=== PATIENT | male | born 1975 | race Caucasian/White ===

== ENCOUNTER 2016-05-28 13:37 | Inpatient (IN) | payer MEDICAID ==
[2016-05-28] VITALS (13 sets, daily range): BP systolic 95–128; BP diastolic 66–94; PULSE 89–107; RESP 11–26; TEMP 97.9; Ht 157.5 cm; Wt 63.4 kg
[~2016-05-28] VITALS: Ht 157.5 cm; Wt 63.4 kg
[~2016-05-28 13:37] MED LIST: ETOMIDATE 20 MG INJ ONE; MIDAZOLAM 1 MG/ML 2 ML INJ ONE; SUCCINYLCHOLINE CHLORIDE 100 MG/5 ML SYG IV ONE
[2016-05-28] MEDS ORDERED: ASPIRIN 81 MG TAB PO STA (13:45)
[2016-05-28] MEDS ORDERED: SODIUM CHLORIDE 0.9% 1L BAG IV* STA (13:50)
[2016-05-28] MEDS ORDERED: AZITHROMYCIN 500MG/NS (PMX) 250 ML IV STA (13:50)
[2016-05-28] MEDS ORDERED: CEFTRIAXONE 1 GM/50 ML (PMX) 50 ML IVPB STA (13:50)
[2016-05-28] MEDS ORDERED: ALBU8.5H3 INH (13:59)
[2016-05-28] MEDS ORDERED: ALBUTEROL 0.5% (NEB) 2.5 MG/0.5 ML AMP ONE (14:02)
[2016-05-28] MEDS ORDERED: DEXAMETHASONE 10 MG/ML 1 ML INJ IV STA (14:02)
[2016-05-28] MEDS ORDERED: ALBUTEROL 0.5% (NEB) 2.5 MG/0.5 ML AMP INH STA (14:02)
--- NOTE | 2016-05-28 14:09 | RADRPT ---
PROCEDURE: XR Chest. CLINICAL INDICATION: Chest pain TECHNIQUE: Chest AP portable. COMPARISON: No comparison available. FINDINGS: The mediastinal structures are unremarkable. The heart is normal in size and configuration. The pu lmonary vascularity is normal. The lung noyola are unremarkable. No consolidation is identified. The pleural spaces are unremarkable. The axial skeleton is unremarkable. IMPRESSION: No active intrathoracic disease. RPTAT: HGDB .Pravin Amaya MD, MD Date Time Electronically viewed and signed by .Pravin Amaya MD, MD on 05/28/2016 14:09 .B/
[2016-05-28 14:10] LABS: BASOPHIL # 0.1 10^3/ul (0.0-0.1); BASOPHILS % 0.5 % (0.0-2.0); EOSINOPHILS # 0.9 10^3/ul (0.0-0.5); HEMATOCRIT 51.3 % (42.0-52.0); HEMOGLOBIN 17.7 g/dl (14.0-18.0); LYMPHOCYTES # 1.1 10^3/ul (0.8-2.9); LYMPHOCYTES % 6.9 % (15.0-51.0); MEAN CORPUSCULAR HEMOGLOBIN 31.2 pg (29.0-33.0); MEAN CORPUSCULAR HGB CONC 34.5 g/dl (32.0-37.0); MEAN CORPUSCULAR VOLUME 90.5 fl (82.0-101.0); MEAN PLATELET VOLUME 9.3 fl (7.4-10.4); MONOCYTE # 0.8 10^3/ul (0.3-0.9); NEUTROPHIL # 12.5 10^3/ul (1.6-7.5); NEUTROPHILS % 81.6 % (39.0-77.0); PLATELET COUNT 205 10^3/UL (140-440); RED BLOOD COUNT 5.67 10^6/ul (4.70-6.10); RED CELL DISTRIBUTION WIDTH 13.8 % (11.5-14.5); UNCORRECTED WBC 15.3 10^3/ul (4.8-10.8); WHITE BLOOD COUNT 15.3 10^3/ul (4.8-10.8)
[2016-05-28 14:11] LABS: CONDITION 1
[2016-05-28 14:12] LABS: INR 0.94; PROTIME 12.6 Sec (12.2-14.2)
[2016-05-28 14:13] LABS: CHLORIDE 103 mmol/L (97-110); PARTIAL THROMBOPLASTIN TIME 28.4 Sec (25.0-35.0); SODIUM 145 mmol/L (135-144)
[2016-05-28 14:16] LABS: ANION GAP 20 (8-16); BLOOD UREA NITROGEN 12 mg/dl (7-20); CARBON DIOXIDE 26 mmol/L (21-31); CREATININE 0.84 mg/dl (0.61-1.24); GLUCOSE 126 mg/dl (70-220)
[2016-05-28 14:17] LABS: CALCIUM 9.9 mg/dl (8.4-10.2)
[2016-05-28 14:24] LABS: D-DIMER < 460.00 ng/ml (<460)
[2016-05-28 14:30] LABS: TROPONIN-I < 0.012 ng/ml (0.00-0.12)
[2016-05-28 14:31] LABS: AADO2 Arterial 176.5 mmHg (7.0-24.0); Allen Test ACCEPTAB; Arterial Base Excess -2.2 mmol/L (-3.0-3); Arterial COHb 0.3 % (0.0-3.0); Arterial Fraction of Oxyhgb 98.1 % (93.0-99.0); Arterial HCO3 24.5 mmol/L (22.0-26.0); Arterial MetHb 0.6 % (0.0-1.5); Arterial Total Hemglobin 18.4 g/dl (12.0-18.0); Blood Gas IEPAP 18/5; Blood Gas PS 13; MODE MASK - BIPAP
[2016-05-28] MEDS ORDERED: ALBUTEROL 0.5% (NEB) 2.5 MG/0.5 ML AMP NEB STA (15:08)
[2016-05-28] MEDS ORDERED: PROPOFOL 100 ML ONE (15:12)
--- NOTE | 2016-05-28 15:20 | ERA ---
ER Documentation Chief Complaint Date/Time DATE: 05/28/16 TIME: 15:16 Chief Complaint ARRIVED WITH SEVERE SOB AND TACHYPNEA HPI 40-year-old male with no known past medical history presenting with 1 day of shortness of breath. He denies any associated chest pain. It started last night and has progressively worsened. He has not been feeling well for several days with sore throat, however had no shortness of breath until last night. He has no known history of asthma or any other lung problems. He arrived to the [facility] in December from [facility]. No family history of significant medical problems. He has no personal history of clotting disorder. No recent prolonged travel or immobilization. No recent surgeries. ROS Review of systems limited secondary to severe respiratory distress. Medications Home Meds Reported Medications Albuterol Sulfate* (Proair HFA*) 8.5 Gm Hfa.aer.ad, 2 PUFF INH Q6H Y for WHEEZING AND SOB, #1 INHALER 05/28/16 Allergies Allergies: Coded Allergies: No Known Allergy (Unverified , 05/28/16) PMhx/Soc Medical and Surgical Hx: pt denies Medical Hx, pt denies Surgical Hx Hx Alcohol Use: No Hx Substance Use: No Hx Tobacco Use: Yes Smoking Status: Current every day smoker FmHx Family History: No diabetes Physical Exam Vitals Vital Signs Date Time Temp Pulse Resp B/P Pulse Ox O2 Delivery O2 Flow Rate FiO2 05/28/16 18:27 98.0 92 20 143/96 100 Mechanical Ventilator 05/28/16 18:21 100 30 05/28/16 17:21 111 26 100 100 05/28/16 17:00 97.9 106 18 145/79 100 Mechanical Ventilator 05/28/16 16:00 98.4 100 26 162/78 100 Mechanical Ventilator 05/28/16 14:44 Non Rebreather 8 05/28/16 14:44 100 05/28/16 13:40 99.2 122 40 166/102 98 Physical Exam Const: In severe respiratory distress, appears toxic Head: Atraumatic Eyes: Normal Conjunctiva ENT: Normal External Ears, Nose and Mouth. Posterior oropharynx normal without swelling or evidence of infection. No stridor or drooling. Neck: Full range of motion. No meningismus. No masses. No JVD Resp: Tachypneic, Diffuse expiratory wheezing, diminished breath sounds bilaterally, no rales or rhonchi Cardio: Tachycardic with regular rhythm, no murmurs Abd: Soft, non tender, non distended. Normal bowel sounds Skin: No petechiae or rashes Back: No midline or flank tenderness Ext: No cyanosis, or edema Neur: Awake and alert and oriented, moving all extremities Result Diagram: 05/28/16 1340 05/28/16 1340 Results 24 hrs Laboratory Tests Test 05/28/16 13:40 05/28/16 13:50 05/28/16 17:39 Activated Partial Thromboplast Time 28.4Sec Anion Gap 20 Basophils # 0.110^3/ul Basophils % 0.5% Blood Urea Nitrogen 12mg/dl Calcium Level 9.9mg/dl Carbon Dioxide Level 26mmol/L Chloride Level 103mmol/L Creatinine 0.84mg/dl D-Dimer < 460.00ng/ml D-Dimer Comment Eosinophils # 0.910^3/ul Eosinophils % 6.0% Glucose Level 126mg/dl Hematocrit 51.3% Hemoglobin 17.7g/dl INR International Normalized Ratio 0.94 Lactic Acid Level 2.4mmol/L Lymphocytes # 1.110^3/ul Lymphocytes % 6.9% Mean Corpuscular Hemoglobin 31.2pg Mean Corpuscular Hemoglobin Concent 34.5g/dl Mean Corpuscular Volume 90.5fl Mean Platelet Volume 9.3fl Monocytes # 0.810^3/ul Monocytes % 5.0% Neutrophils # 12.510^3/ul Neutrophils % 81.6% Nucleated Red Blood Cells # 0.010^3/ul Nucleated Red Blood Cells % 0.0/100WBC Platelet Count 85416^3/UL Potassium Level 4.0mmol/L Prothrombin Time 12.6Sec Prothrombin Time Ratio 1.0 Red Blood Count 5.6710^6/ul Red Cell Distribution Width 13.8% Sodium Level 145mmol/L Troponin I < 0.012ng/ml White Blood Count 15.310^3/ul Arterial Blood HCO3 24.5mmol/L 23.1mmol/L Arterial Blood Base Excess -2.2mmol/L -3.4mmol/L Arterial Blood Oxygen Saturation 99.0mmHG 99.7mmHG Joni Test ACCEPTAB ACCEPTAB Arterial Blood Gas Puncture Site Right Radial Right Radial Arterial Blood Carboxyhemoglobin 0.3% 0% Arterial Blood Date Drawn 05/28/2016 2:22:35 PM 05/28/2016 5:34:29 PM Arterial Blood Methemoglobin 0.6% 0.6% Arterial Blood pCO2 (Temp correct) 48.4mmhg 46.8mmhg Arterial Blood pH (Temp corrected) 7.322 7.312 Arterial Blood pO2 (Temp corrected) 198.1mmHG 532.6mmHG Blood Gas A-a O2 Differential 176.5mmHg 133.6mmHg Blood Gas Actual Respiration Rate 40 24 Blood Gas IPAP/EPAP Ratio 18/5 Blood Gas Modality MASK - BIPAP VENT - AC Blood Gas Notified Time 05/28/2016 2:31:01 PM 05/28/2016 5:44:07 PM Blood Gas Notified Whom M.D. M.D. Blood Gas Pressure Support 13 Blood Gas Respiration Rate 14.0 24.0 Blood Gas Specimen Source Blood arterial Blood arterial Blood Gas Temperature 37.0C 37.0C FiO2 60.0% 100.0% Oxyhemoglobin Percent 98.1% 99.1% Total Hemoglobin 18.4g/dl 16.3g/dl Blood Gas Low PEEP Setting 5.0cmH2O Blood Gas Tidal Volume 500.0mL Current Medications Medications (Trade) Dose Ordered Sig/Rufino Route PRN Reason Start Time Stop Time Status Last Admin Dose Admin Aspirin (Aspirin) 162 mg ONCE STAT PO 05/28/16 13:45 05/28/16 18:08 DC Sodium Chloride 2100 ml 2,100 ml BOLUS OVER 2 HOURS STAT IV* 05/28/16 13:50 05/28/16 13:52 DC 05/28/16 14:34 Ceftriaxone Sodium 50 ml @ 100 mls/hr ONCE STAT IVPB 05/28/16 13:50 05/28/16 14:19 DC 05/28/16 14:34 Azithromycin (Zithromax 500mg/ NS (Pmx)) 250 ml @ 250 mls/hr ONCE STAT IV 05/28/16 13:50 05/28/16 14:49 DC Albuterol (Proventil 0.5% (Neb)) 2.5 mg STK-MED ONCE .ROUTE 05/28/16 14:02 05/28/16 14:03 DC Albuterol (Proventil 0.5% (Neb)) 10 mg ONCE STAT INH 05/28/16 14:02 2/8/17 14:04 DC 05/28/16 15:40 Dexamethasone (Decadron) 10 mg ONCE STAT IV 05/28/16 14:02 05/28/16 14:04 DC 05/28/16 14:33 Albuterol 5 mg 5 mg ONCE STAT NEB 05/28/16 15:08 05/28/16 15:09 DC 05/28/16 15:40 Propofol 100 ml @ 0 mls/hr TITRATE ONCE IV 05/28/16 15:30 05/28/16 16:04 DC Propofol (Diprivan) 100 ml @ ud STK-MED ONCE .ROUTE 05/28/16 15:12 05/28/16 15:13 DC Midazolam HCl 2 mg 2 mg ONCE ONCE IV 05/28/16 16:00 05/28/16 16:01 DC 05/28/16 15:37 Midazolam HCl 50 ml @ 1 mls/hr TITRATE IV 05/28/16 16:00 05/28/16 16:37 DC Fentanyl 100 ml @ 2.5 mls/hr TITRATE IV 05/28/16 16:00 05/28/16 16:37 DC Dexmedetomidine HCl 200 mcg/ Sodium Chloride 50 ml @ 0 mls/hr TITRATE IV 05/28/16 17:00 05/28/16 18:09 DC Sodium Chloride (NS) 1,000 ml @ 50 mls/hr Q20H IV 05/28/16 16:41 Flumazenil (Romazicon) 0.2 mg Q1M PRN IV BENZODIAZEPINE OVERDOSE 05/28/16 17:00 Ondansetron HCl (Zofran Inj) 4 mg Q6H PRN IV NAUSEA AND/OR VOMITING 05/28/16 17:00 Albuterol (Ventolin Hfa) 4 puff Q4H RESP THERAPY INH 05/28/16 17:00 Ipratropium Norden (Atrovent Hfa) 4 puff Q4H RESP THERAPY INH 05/28/16 17:00 Methylprednisolone Sodium Succinate 60 mg 60 mg Q6 IV 05/28/16 18:00 05/28/16 17:56 Magnesium Sulfate (Magnesium Sulfate 2 Gm/50 ml) 50 ml @ 25 mls/hr ONCE ONCE IV 05/28/16 17:00 05/28/16 18:59 05/28/16 17:46 Nitroglycerin (Nitroglycerin (Sl Tab) 0.4 Mg) 1 tab Q5M PRN SL CHEST PAIN 05/28/16 17:00 Acetaminophen (Tylenol Supp) 650 mg Q4H PRN LA PAIN LEVEL 1-3 OR FEVER 05/28/16 17:00 Morphine Sulfate (morphine) 2 mg Q4H PRN IV PAIN LEVEL 7-10 05/28/16 17:00 Lorazepam (Ativan) 1 mg Q2H PRN IV ANXIETY 05/28/16 17:00 Famotidine (Pepcid Iv) 20 mg Q12 IV 05/28/16 21:00 Enoxaparin Sodium 40 mg 40 mg DAILY SC 05/29/16 09:00 Cefepime HCl 50 ml @ 100 mls/hr Q12 IV 05/29/16 09:00 Dexmedetomidine HCl/Sodium Chloride (Precedex/NS) 50 ml @ 3.35 mls/hr TITRATE IV 05/28/16 17:00 Procedures/MDM EKG: Rate/Rhythm: Sinus tachycardia at 121 bpm QRS, ST, T-waves: Left axis deviation, no changes consistent w/ acute ischemia Impression: Sinus tachycardia, no evidence of ischemia or arrhythmia Patient presented with severe respiratory distress and evidence of bronchospasm on exam. There is no hypoxia, however the patient was tachypneic and tachycardic. Chest x-ray did not show evidence of any pulmonary mass or pneumonia. His d-dimer was within normal limits, making pulmonary embolism low on the differential. There is no evidence of acute CHF on my exam. I do not suspect anaphylaxis. The patient was immediately started on BiPAP and albuterol med nebs without any significant improvement. He was still working very hard to breathe and appeared to be getting very tired. I discussed intubation with the patient and he prefers to be intubated at this time. The patient was intubated for severe respiratory distress not improving with noninvasive positive pressure ventilation. Labs were notable for leukocytosis and lactic acidosis. Although the chest x-ray did not show any pneumonia, there is still a possibility of bacterial bronchitis. He was started on broad -spectrum antibiotics and 30 cc/kg of IV fluids. A stat echo was done and upon my interpretation, there is normal wall motion, ejection fraction, and no evidence of pericardial effusion. Endotracheal Intubation by me: Pre assessment performed. See preceding note for details. Pre-oxygenation performed with 100% oxygen RSI: Performed w/o complication or hypoxic events. Medications as ordered. Blade: Mac 4 ET Tube: 7.5 cm Depth: 23 cm at the lip Intubation confirmed by colorimetric CO2, equal breath sounds, quiet over the stomach. Chest X-ray 1V Interpreted by me: [XOXOXO] cm above the le ET tube. Normal soft tissue, No pneumothorax. Patient's infectious symptoms have not stabilized and the patient is at risk of rapid decompensation. The patient will be admitted for careful hydration, antibiotic therapy, and infectious source control. Severe Sepsis Assessment: Infectious Source: Suspect pulmonary infection End organ damage indicated by: Lactate > 2.0 mmol/L Acute Resp Failure Severe Sepsis Managment: Blood Cultures X 2 before broad spectrum antibiotics initiated within 3 hours of recognition. 30 ml/kg NS bolus Completed Initial Lactate: 2.4 Repeat Lactate pending Septic Shock Assessment (1 hour post 30 ml/kg fluid bolus): Hypotension (SBP < 90 or 40 mmHg drop, MAP < 65): [No] Lactic acid > 4.0 [No] Critical Care Time: 40 minutes Treatments/Evaluations: Close monitoring and treatment of unstable vital signs, cardiorespiratory, and neurologic status, while maintaining tight balance of fluid, respiratory, and cardiac interventions. This time includes discussing the case with the patient and the patients family. This time does not include all procedures stated elsewhere in this record. This time also includes reviewing old records, labs and radiological studies. This time includes examining and re-examining the patient. Additionally, this time also includes arranging care with admitting and consulting physicians. Accepting Care Team: Current data and ongoing care discussed. Time: Time of admission Primary Provider: Ronnie Consulting: Errol Outstanding Data: cultures Departure Diagnosis: Primary Impression: Acute respiratory failure with hypercapnia Additional Impressions: Bronchospasm, acute Severe sepsis Condition: Critical WILLIAMS ANDINO MD May 28, 2016 15:20
[2016-05-28] MEDS ORDERED: PROPOFOL 100 ML IV ONE (15:30)
[2016-05-28] MEDS ORDERED: FENTAnyl (DRIP) 1000 mcg/100mL 100 ML IV SCH (16:00)
[2016-05-28] MEDS ORDERED: MIDAZOLAM (DRIP) 50 mg/50 mL 50 ML IV SCH (16:00)
[2016-05-28] MEDS ORDERED: MIDAZOLAM 1 MG/ML 2 ML INJ IV ONE (16:00)
--- NOTE | 2016-05-28 16:53 | HP ---
Date/Time of Note Date/Time of Note DATE: 05/28/16 TIME: 16:47 Assessment/Plan VTE Prophylaxis VTE Prophylaxis Intervention: LMWH Lines/Catheters IV [facility]ter [facility]from [facility]): Saline Lock Assessment/Plan Assessment/Plan 40 yo male with a past medical history of smoking, questionable asthma, who presents with acute shortness of breath. 1. Acute hypoxemic respiratory failure requiring intubation - will admit the patient to the ICU, consult pulm, continue with duonebs scheduled and prn, IV steroids, IV antibiotics - ddx - asthma vs copd vs other 2. Throat infection - possible abscess - will check CT neck with IV contrast 3. Sepsis 2/2 possible atypical pneumonia - broad spectrum antibiotics 4. 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 GI ppx - pepcid IV 6. DVT ppx - lovenox as per clinical course. this critical care note took greater than 1 hour to complete HPI/ROS Admit Date/Time Admit Date/Time 05/28/2016, 4:47 pm Hx of Present Illness 40 yo male with a past medical history of smoking, questionable asthma, who presents with acute shortness of breath. Patient had recently came from [facility]. All of this information was gathered from the chart and the ED physician, as the patient is currently intubated and sedated. ED course: emergent intubation 2/2 to patient have acute respiratory distress, IV antibiotics, decadron ROS Subjective hx not possible: pt critical status PMH/Family/Social Past Medical History asthma vs COPD Past Surgical History unknown Family History Significant Family History: no pertinent family hx Social History Alcohol Use: none Smoking Status: Former smoker Drug Use: none Exam/Review of Systems Vital Signs Vitals Vital Signs Date Time Temp Pulse Resp B/P Pulse Ox O2 Delivery O2 Flow Rate FiO2 05/28/16 14:44 Non Rebreather 8 05/28/16 13:40 99.2 122 40 166/102 98 Exam Exam Gen Kenneth: intubated and sedated HEENT: NC/AT, PERRLA, ETT in place with copious secretions NECK: supple, no thyromegaly THORAX: symmetrical, no obvious deformities CV: S1S2, RRR, no M/G/R Lungs: coarse breath sounds, inspiratory and expiratory wheezing, no crackles Abd: soft, NT/ND, +BS, no rebound, no guarding, neg HSM EXT: no edema, no ecchymosis, no clubbing, FROM Neuro: sedated Psych: cannot assess Skin: C/D/I Labs Result Diagram: 05/28/16 1340 05/28/16 1340 Medications Medications Current Medications Dexmedetomidine HCl/Sodium Chloride (Precedex/NS) 50 ml @ 0 mls/hr TITRATE IV ; Start 05/28/16 at 17:00 Procedures Procedures CXR IMPRESSION: No active intrathoracic disease. RACADIO MANCILLA MD May 28, 2016 16:53
[2016-05-28] MEDS ORDERED: FLUMAZENIL 0.5 MG INJ IV PRN (17:00)
[2016-05-28] MEDS ORDERED: DEXMEDETOMIDINE HCL 200 MCG in SOD CHLORIDE 0.9% 48 ML IV SCH (17:00)
[2016-05-28] MEDS ORDERED: ACETAMINOPHEN 650 MG SUPP PR PRN (17:00)
[2016-05-28] MEDS ORDERED: morphine 2 MG INJ IV PRN (17:00)
[2016-05-28] MEDS ORDERED: NITROGLYCERIN (SL) 0.4 MG TAB SL PRN (17:00)
[2016-05-28] MEDS ORDERED: MAGNESIUM SULFATE 2 GM/50 ML 50 ML IV ONE (17:00)
[2016-05-28] MEDS ORDERED: ONDANSETRON 4 MG INJ IV PRN (17:00)
[2016-05-28 17:44] LABS: AADO2 Arterial 133.6 mmHg (7.0-24.0); Allen Test ACCEPTAB; Arterial Base Excess -3.4 mmol/L (-3.0-3); Arterial COHb 0 % (0.0-3.0); Arterial Fraction of Oxyhgb 99.1 % (93.0-99.0); Arterial HCO3 23.1 mmol/L (22.0-26.0); Arterial MetHb 0.6 % (0.0-1.5); Arterial Total Hemglobin 16.3 g/dl (12.0-18.0); MODE VENT - AC
--- NOTE | 2016-05-28 17:44 | CONS ---
DATE OF ADMISSION: 05/28/2016 DATE OF CONSULTATION: 05/28/2016 TYPE OF CONSULTATION: Pulmonary. REASON FOR CONSULTATION: Shortness of breath. Thank you, Dr. Bales, for this consultation. HISTORY OF PRESENT ILLNESS: This is a 40-year-old gentleman with a positive tobacco history, possib le underlying history of asthma, a recent arrival from [facility], who came with increasing shortness of breath, orthopnea, PND, found to have significant hypoxemia on admission. The patient required emergent intubation, subsequent mechanical ventilation. Few further details are available. PAST MEDICAL HISTORY: Positive tobacco use, otherwise unknown. MEDICATIONS: Per chart. ALLERGIES: APPARENTLY NONE. SYSTEMS REVIEW: A 12-point review of systems unable to perform. PHYSICAL EXAMINATION: GENERAL: Well-nourished, well-developed gentleman, appears comfortable at rest. No acute distress. VITAL SIGNS: Currently afebrile, pulse is 120, blood pressure 160/70, O2 saturation 96% on sprinkler irrigation equipment mechanic al ventilation. NECK: Supple. No JVD or lymphadenopathy. CARDIAC: S1, S2. No added sounds or murmurs. CHEST: Diminished air entry bilaterally. ABDOMEN: Soft, nontender. No guarding or rebound. EXTREMITIES: No cyanosis, clubbing, edema. NEUROLOGIC: Generalized weakness. LABORATORY DATA: White count 13.5, hemoglobin 17.7, platelets of 205. BUN 12, creatinine 0.86. La ctic acid 2.4. ABG: pH 7.32, pCO2 of 48, pO2 of 198 on BiPAP. INR 0.96. DIAGNOSTIC DATA: Chest x-ray was reviewed, shows no significant infiltrates or effusions. IMPRESSION AND PLAN: 1. Acute hypoxemic respiratory failure. 2. Possible viral pneumonia. 3. Questionable throat abscess, pending CT scan. The patient will require: 1. Continued mechanical ventilation. 2. Bronchodilators. 3. Supplemental O2. 4. Consider empiric treatment for possible influenza infection. Dictated By: TONY VELÁZQUEZ/JAVIER Conf#: [id number] DID#: [id number]
[2016-05-28] MEDS: METHYLPREDNISOLONE 125 MG INJ IV SCH (17:56)
[2016-05-28] MEDS: DEXMEDETOMIDINE HCL 200 MCG in SOD CHLORIDE 0.9% 48 ML IV SCH ×2 (18:40→22:46)
[2016-05-28 18:50] LABS: ADD UMIC YES; URINE BILIRUBIN (Dip) NEGATIVE (NEGATIVE); URINE BLOOD (Dip) 1+ (NEGATIVE); URINE COLOR LT. YELLOW (YELLOW); URINE GLUCOSE (Dip) NEGATIVE (NEGATIVE); URINE KETONES (Dip) 15 (NEGATIVE); URINE LEUKOCYTE ESTERASE (Dip) NEGATIVE (NEGATIVE); URINE NITRITE (Dip) NEGATIVE (NEGATIVE); URINE TOTAL PROTEIN (Dip) NEGATIVE (NEGATIVE); URINE UROBILINOGEN (Dip) 0.2 E.U./dL (0.1-1.0)
--- NOTE | 2016-05-28 19:07 | RADRPT ---
PROCEDURE: XR Chest. CLINICAL INDICATION: Post intubation TECHNIQUE: Chest AP portable. COMPARISON: 05/2007 at 1400 hours FINDINGS: Endotracheal tube 3 cm above the le. The mediastinal structures are unremarkable. The heart is normal in size and configuration. The pu lmonary vascularity is normal. The lung noyola are unremarkable. No consolidation is identified. T here is a 5 mm LLL calcified granuloma. The pleural spaces are unremarkable. The axial skeleton is unremarkable. IMPRESSION: No active intrathoracic disease. RPTAT: HGDB .Pravin Amaya MD, MD Date Time Electronically viewed and signed by .Pravin Amaya MD, MD on 05/28/2016 19:06 .B/
[2016-05-28] MEDS ORDERED: IOHEXOL 300MG/ML 150 ML BTL ONE (20:41)
[2016-05-28] MEDS ORDERED: SOD CHLORIDE 0.9% 100 ML ONE (20:41)
[2016-05-28] MEDS: IPRATROPIUM (HFA) 12.9 GM INHALER INH SCH ×2 (21:40→22:18)
[2016-05-28] MEDS: ALBUTEROL HFA 8 GM INHALER INH SCH ×2 (21:41→22:18)
[2016-05-28] MEDS: SOD CHLORIDE 0.9% 1,000 ML IV SCH (21:47)
[2016-05-28] MEDS: FAMOTIDINE 20 MG INJ IV SCH (22:01)
--- NOTE | 2016-05-28 22:05 | RADRPT ---
PROCEDURE: CT scan of the neck with contrast. CLINICAL INDICATION: Pain. Infection para. TECHNIQUE: CT scan of the neck was performed on a multidetector scanner. Contiguous axial images were obtained throughout the neck with coronal and sagittal reformatted images created. The patient was examined following the uncomplicated intravenous administration of 85 cc of Omnipaque-300. Exa m CTDlvol = 11 mGy and DLP = 276 mGy-cm. One of the following 3 dose reduction techniques were used : Automated exposure control; adjustment of the mA and/or kV according to patient size; or use of it erative reconstruction technique. COMPARISON: None available. FINDINGS: Endotracheal tube is present with the tip well above the le. The oropharynx, hypopharynx, laryn x, and trachea are unremarkable. No airway compromise is seen. The mucosal space of the airway is clear. The tonsillar pillars are normal. The deep spaces of the suprahyoid neck are symmetric and normal. No mass is identified. The parotid glands, submandibular glands, and thyroid gland are unr emarkable. No lymphadenopathy is detected. Imaging obtained through the lung apices revealed no acute abnormality. There is diffuse paranasal sinus mucosal thickening. Degenerate changes cervical spine are present including prominent posterior disk osteophyte at C5-6. IMPRESSION: 1. No evidence for a peritonsillar or retropharyngeal abscess. 2. No significant lymphadenopathy. 3. Endotracheal tube tip above the le. 4. Degenerative changes of the cervical spine greatest at C5-6. 5. Diffuse paranasal sinus mucosal thickening. RPTAT: HMVK .Solomon Batista MD, Date Time Electronically viewed and signed by .Solomon Batista MD, MD on 05/28/2016 22:05 .K/
[2016-05-28] MEDS: LORAZEPAM 2 MG INJ IV PRN (22:12)
[2016-05-28 22:17] LABS: CREATINE KINASE 400 IU/L (23-200)
[2016-05-28 22:27] LABS: CK-MB 5.48 ng/ml (0.0-2.4)
[2016-05-28 22:33] LABS: TROPONIN-I < 0.012 ng/ml (0.00-0.12)
[2016-05-28 23:26] LABS: AADO2 Arterial 83.1 mmHg (7.0-24.0); Allen Test ACCEPTAB; Arterial Base Excess -1.7 mmol/L (-3.0-3); Arterial COHb 0.2 % (0.0-3.0); Arterial Fraction of Oxyhgb 96.9 % (93.0-99.0); Arterial HCO3 22.5 mmol/L (22.0-26.0); Arterial MetHb 0.3 % (0.0-1.5); MODE VENT - AC
[2016-05-29] VITALS (53 sets, daily range): BP systolic 97–141; BP diastolic 65–92; PULSE 73–106; RESP 21–33
[2016-05-29] MEDS: ALBUTEROL HFA 8 GM INHALER INH SCH ×6 (00:25→21:16)
[2016-05-29] MEDS: IPRATROPIUM (HFA) 12.9 GM INHALER INH SCH ×6 (00:25→21:16)
[2016-05-29] MEDS: METHYLPREDNISOLONE 125 MG INJ IV SCH ×6 (01:06→23:38)
[2016-05-29] MEDS: LORAZEPAM 2 MG INJ IV PRN (01:07)
[2016-05-29 01:49] LABS: CREATINE KINASE 353 IU/L (23-200)
[2016-05-29 02:04] LABS: CK-MB 4.84 ng/ml (0.0-2.4); TROPONIN-I < 0.012 ng/ml (0.00-0.12)
[2016-05-29] MEDS: DEXMEDETOMIDINE HCL 200 MCG in SOD CHLORIDE 0.9% 48 ML IV SCH ×5 (02:35→21:18)
[2016-05-29 06:07] LABS: BASOPHILS % 0.1 % (0.0-2.0); HEMATOCRIT 43.2 % (42.0-52.0); LYMPHOCYTES # 0.4 10^3/ul (0.8-2.9); MEAN CORPUSCULAR HEMOGLOBIN 31.5 pg (29.0-33.0); MEAN CORPUSCULAR HGB CONC 34.7 g/dl (32.0-37.0); MEAN CORPUSCULAR VOLUME 90.9 fl (82.0-101.0); MEAN PLATELET VOLUME 9.1 fl (7.4-10.4); MONOCYTE # 0.1 10^3/ul (0.3-0.9); NEUTROPHIL # 9.4 10^3/ul (1.6-7.5); NEUTROPHILS % 94.9 % (39.0-77.0); PLATELET COUNT 162 10^3/UL (140-440); RED BLOOD COUNT 4.75 10^6/ul (4.70-6.10); RED CELL DISTRIBUTION WIDTH 13.7 % (11.5-14.5); UNCORRECTED WBC 9.9 10^3/ul (4.8-10.8); WHITE BLOOD COUNT 9.9 10^3/ul (4.8-10.8)
[2016-05-29 06:36] LABS: CONDITION 1; LH ANALYZER COMMENTS 1
--- NOTE | 2016-05-29 06:39 | RADRPT ---
PROCEDURE: XR Chest. CLINICAL INDICATION: Respiratory failure. COPD. TECHNIQUE: Portable single view of the chest COMPARISON: 05/28 FINDINGS: Endotracheal tube remains in good position. No focal infiltrate. Left lower lobe granuloma. IMPRESSION: No significant interval change. No definite acute disease. RPTAT: HLBE Rebecca Shaw Physician Date Time Electronically viewed and signed by Rebecca Shaw, Physician on 05/29/2016 06:38 LE/
[2016-05-29 07:21] LABS: POTASSIUM 4.7 mmol/L (3.5-5.1)
[2016-05-29 07:24] LABS: CALCIUM 8.5 mg/dl (8.4-10.2); CREATININE 0.79 mg/dl (0.61-1.24)
--- NOTE | 2016-05-29 07:40 | CONS ---
Date/Time of Note Date/Time of Note DATE: 05/29/16 TIME: 07:37 Assessment/Plan Assessment/Plan Additional Assessment/Plan Current ventilator settings are AC of 24 tidal volume 550, PEEP of 5, 30% FiO2. Next Assessment and recommendations; 1. Patient admitted with severe asthma exacerbation leading to respiratory failure next 2. Chest x-ray from today is totally clear, patient is afebrile has normal white cell count. Her blood gas on current ventilator settings. Increase Solu-Medrol to 125 mg every 6 hours. Discontinued cefepime, continue Zithromax IV. Start tube feeding. Continue sedation for now. Once ABGs obtained, I will review it and make further recommendations regarding changes in ventilator settings. Consultation Date/Type/Reason Admit Date/Time May 28, 2016 at 16:41 Initial Consult Date Type of Consultation: Pulmonary/critical care 24 HR Interval Summary Free Text/Dictation Patient's condition remains critical. Still requiring full ventilator support. As well as sedation with Precedex. Patient despite minimal sedation is arousable. Has remained hemodynamically stable. General examination; young male, orally intubated, mildly sedated. Currently in no distress. Exam/Review of Systems Vital Signs Vitals Vital Signs Date Time Temp Pulse Resp B/P Pulse Ox O2 Delivery O2 Flow Rate FiO2 05/29/16 06:00 98 24 108/74 97 Mechanical Ventilator 05/29/16 05:00 98.2 05/29/16 04:59 30 05/28/16 14:44 8 Intake and Output 05/28/16 05/28/16 05/29/16 15:00 23:00 07:00 Intake Total 140.075 ml 563.86 ml Output Total 730 ml 1090 ml Balance -589.925 ml -526.14 ml Exam HEENT examination; supple neck, no JVD. Pupils are midsize reactive to light. No neck masses. No stridor. No thyromegaly. No neck bruits. No lymphadenopathy. Chest examination; diffuse bilateral wheezing. S1-S2 audible, no murmurs, regular rate and rhythm. Abdomen examination; soft, nondistended, nontender. No organomegaly. Bowel sounds audible. PHYSICAL THERAPY RESIDENT examination; patient is somewhat arousable. Results Result Diagram: 05/29/1630 05/29/16 0530 Results 24 hrs Laboratory Tests Test 05/28/16 13:40 05/28/16 13:50 05/28/16 17:09 05/28/16 17:39 Activated Partial Thromboplast Time 28.4 Anion Gap 20 H Basophils # 0.1 Basophils % 0.5 Blood Urea Nitrogen 12 Calcium Level 9.9 Carbon Dioxide Level 26 Chloride Level 103 Creatinine 0.84 D-Dimer < 460.00 D-Dimer Comment Eosinophils # 0.9 H Eosinophils % 6.0 Glucose Level 126 Hematocrit 51.3 Hemoglobin 17.7 INR International Normalized Ratio 0.94 Lactic Acid Level 2.4 H Lymphocytes # 1.1 Lymphocytes % 6.9 L Mean Corpuscular Hemoglobin 31.2 Mean Corpuscular Hemoglobin Concent 34.5 Mean Corpuscular Volume 90.5 Mean Platelet Volume 9.3 Monocytes # 0.8 Monocytes % 5.0 Neutrophils # 12.5 H Neutrophils % 81.6 H Nucleated Red Blood Cells # 0.0 Nucleated Red Blood Cells % 0.0 Platelet Count 205 Potassium Level 4.0 Prothrombin Time 12.6 Prothrombin Time Ratio 1.0 Red Blood Count 5.67 Red Cell Distribution Width 13.8 Sodium Level 145 H Troponin I < 0.012 White Blood Count 15.3 H Arterial Blood HCO3 24.5 23.1 Arterial Blood Base Excess -2.2 -3.4 L Arterial Blood Oxygen Saturation 99.0 H 99.7 H Joni Test ACCEPTAB ACCEPTAB Arterial Blood Gas Puncture Site Right Radial Right Radial Arterial Blood Carboxyhemoglobin 0.3 0 Arterial Blood Date Drawn 05/28/2016 2:22:35 PM 05/28/2016 5:34:29 PM Arterial Blood Methemoglobin 0.6 0.6 Arterial Blood pCO2 (Temp correct) 48.4 H 46.8 H Arterial Blood pH (Temp corrected) 7.322 L 7.312 L Arterial Blood pO2 (Temp corrected) 198.1 H 532.6 H Blood Gas A-a O2 Differential 176.5 H 133.6 H Blood Gas Actual Respiration Rate 40 24 Blood Gas IPAP/EPAP Ratio 18/5 Blood Gas Modality MASK - BIPAP VENT - AC Blood Gas Notified Time 05/28/2016 2:31:01 PM 05/28/2016 5:44:07 PM Blood Gas Notified Whom M.D. M.D. Blood Gas Pressure Support 13 Blood Gas Respiration Rate 14.0 24.0 Blood Gas Specimen Source Blood arterial Blood arterial Blood Gas Temperature 37.0 37.0 FiO2 60.0 100.0 Oxyhemoglobin Percent 98.1 99.1 H Total Hemoglobin 18.4 H 16.3 Urine Bilirubin NEGATIVE Urine Clarity CLEAR Urine Color LT. YELLOW Urine Glucose NEGATIVE Urine Hemoglobin 1+ H Urine Ketones 15 Urine Leukocyte Esterase NEGATIVE Urine Microscopic RBC 2-5 Urine Microscopic WBC 0-2 Urine Nitrite NEGATIVE Urine Specific [place] >=1.030 H Urine Total Protein NEGATIVE Urine Urobilinogen 0.2 E.U./dL Urine pH 5.5 Blood Gas Low PEEP Setting 5.0 Blood Gas Tidal Volume 500.0 Test 05/28/16 21:30 05/28/16 21:46 05/28/16 23:17 05/29/16 01:32 Lactic Acid Level 1.5 Creatine Kinase 400 H 353 H Creatine Kinase Index 1.4 1.4 Creatinine Kinase MB (Mass) 5.48 H 4.84 H Magnesium Level 2.7 H Troponin I < 0.012 < 0.012 Arterial Blood HCO3 22.5 Arterial Blood Base Excess -1.7 Arterial Blood Oxygen Saturation 97.4 Joni Test ACCEPTAB Arterial Blood Gas Puncture Site Right Radial Arterial Blood Carboxyhemoglobin 0.2 Arterial Blood Date Drawn 05/28/2016 11:17:45 PM Arterial Blood Methemoglobin 0.3 Arterial Blood pCO2 (Temp correct) 36.6 Arterial Blood pH (Temp corrected) 7.406 Arterial Blood pO2 (Temp corrected) 87.8 Blood Gas A-a O2 Differential 83.1 H Blood Gas Actual Respiration Rate 24 Blood Gas Inspiratory Pressure 30.0 Blood Gas Low PEEP Setting 5.0 Blood Gas Modality VENT - AC Blood Gas Notified Time 05/28/2016 11:26:06 PM Blood Gas Notified Whom d ali cd reactor operator Blood Gas Respiration Rate 24.0 Blood Gas Specimen Source Blood arterial Blood Gas Temperature 37.0 Blood Gas Tidal Volume 550.0 FiO2 30.0 Oxyhemoglobin Percent 96.9 Total Hemoglobin 16.0 Test 05/29/16 05:30 Anion Gap 19 H Basophils # 0.0 Basophils % 0.1 Blood Urea Nitrogen 17 Calcium Level 8.5 Carbon Dioxide Level 21 Chloride Level 106 Creatinine 0.79 Eosinophils # 0.0 Eosinophils % 0.0 Glucose Level 154 Hematocrit 43.2 Hemoglobin 15.0 Lymphocytes # 0.4 L Lymphocytes % 4.0 L Mean Corpuscular Hemoglobin 31.5 Mean Corpuscular Hemoglobin Concent 34.7 Mean Corpuscular Volume 90.9 Mean Platelet Volume 9.1 Monocytes # 0.1 L Monocytes % 1.0 Neutrophils # 9.4 H Neutrophils % 94.9 H Nucleated Red Blood Cells # 0.0 Nucleated Red Blood Cells % 0.0 Platelet Count 162 # Potassium Level 4.7 Red Blood Count 4.75 Red Cell Distribution Width 13.7 Sodium Level 141 White Blood Count 9.9 # Medications Medications Current Medications Sodium Chloride (NS) 1,000 ml @ 50 mls/hr Q20H IV Last administered on 21:47; Admin Dose 50 MLS/HR; Start 05/28/16 at 16:41 Flumazenil (Romazicon) 0.2 mg Q1M PRN IV BENZODIAZEPINE OVERDOSE; Start at 17:00 Ondansetron HCl (Zofran Inj) 4 mg Q6H PRN IV NAUSEA AND/OR VOMITING; Start 05/28 at 17:00 Methylprednisolone Sodium Succinate (Solu-Medrol) 60 mg Q6 IV Last administered on 05/29/16 05:35; Admin Dose 60 MG; Start 05/28/16 at 18:00 Nitroglycerin (Nitroglycerin (Sl Tab) 0.4 Mg) 1 tab Q5M PRN SL CHEST PAIN; Start 05/28/16 at 17:00 Acetaminophen (Tylenol Supp) 650 mg Q4H PRN MS PAIN LEVEL 1-3 OR FEVER; Start 05/28/16 at 17:00 Morphine Sulfate (morphine) 2 mg Q4H PRN IV PAIN LEVEL 7-10; Start 05/28/16 at 17:00 Lorazepam (Ativan) 1 mg Q2H PRN IV ANXIETY Last administered on 05/29/16 01:07 ; Admin Dose 1 MG; Start 05/28/16 at 17:00 Famotidine (Pepcid Iv) 20 mg Q12 IV Last administered on 05/28/16 22:01; Admin Dose 20 MG; Start 05/28/16 at 21:00 Enoxaparin Sodium 40 mg 40 mg DAILY SC ; Start 05/29/16 at 09:00 Cefepime HCl 50 ml @ 100 mls/hr Q12 IV ; Start 05/29/16 at 09:00 Dexmedetomidine HCl/Sodium Chloride (Precedex/NS) 50 ml @ 3.35 mls/hr TITRATE IV Last administered on 05/29/16t 05:35; Admin Dose 11.72 MLS/HR; Start 05/28/16 at 17:00 MARY LOU COOK May 29, 2016 07:40
[2016-05-29 08:11] LABS: AADO2 Arterial 72.9 mmHg (7.0-24.0); Allen Test ACCEPTAB; Arterial Base Excess -1.7 mmol/L (-3.0-3); Arterial COHb 0.7 % (0.0-3.0); Arterial Fraction of Oxyhgb 96.4 % (93.0-99.0); Arterial HCO3 23.8 mmol/L (22.0-26.0); Arterial MetHb 0.4 % (0.0-1.5); Arterial Total Hemglobin 16.5 g/dl (12.0-18.0); MODE VENT - AC
--- NOTE | 2016-05-29 08:47 | PN ---
Date/Time of Note Date/Time of Note DATE: 05/29/16 TIME: 08:43 Assessment/Plan VTE Prophylaxis VTE Prophylaxis Intervention: LMWH Lines/Catheters Urinary Cath still in place: Yes Reason Cath still needed: urinary retention Assessment/Plan Assessment/Plan 40 yo male with a past medical history of smoking, questionable asthma, who presents with acute shortness of breath. 1. Acute hypoxemic respiratory failure requiring intubation - increased steroids - appreciate pulm recs 2. Throat infection - possible abscess - CT chest is negative 3. Sepsis 2/2 possible atypical pneumonia - broad spectrum antibiotics - de- escalate as per pulm 4. Smoking abuse - will corporate counsel patient on cessation when more alert and extubated 5. GI ppx - pepcid IV 6. DVT ppx - lovenox dispo - f/u recs, possible extubation tomorrow, as per clinical course. this critical care note took greater than 45 min to complete Subjective 24 Hr Interval Summary Free Text/Dictation Patient was admitted yesterday for Asthma/COPD exacerbation. Spoke to the parents, who were present at bedside, about the care plan. 20 minutes spent. Exam/Review of Systems Vital Signs Vitals Vital Signs Date Time Temp Pulse Resp B/P Pulse Ox O2 Delivery O2 Flow Rate FiO2 05/29/16 07:30 98.9 95 25 109/69 97 Mechanical Ventilator 05/29/16 04:59 30 05/28/16 14:44 8 Intake and Output 05/28/16 05/28/16 05/29/16 15:00 23:00 07:00 Intake Total 140.075 ml 563.86 ml Output Total 730 ml 1090 ml Balance -589.925 ml -526.14 ml Exam Gen Kenneth: intubated and sedated HEENT: NC/AT, PERRLA, ETT in place with copious secretions NECK: supple, no thyromegaly THORAX: symmetrical, no obvious deformities CV: S1S2, RRR, no M/G/R Lungs: coarse breath sounds, inspiratory and expiratory wheezing, no crackles- worsening wheezing Abd: soft, NT/ND, +BS, no rebound, no guarding, neg HSM EXT: no edema, no ecchymosis, no clubbing, FROM Neuro: sedated Psych: cannot assess Skin: C/D/I Results Result Diagram: 05/29/1652905/29/16529 Results 24 hrs Laboratory Tests Test 05/28/16 13:40 05/28/16 13:50 05/28/16 17:09 05/28/16 17:39 Activated Partial Thromboplast Time 28.4 Anion Gap 20 H Basophils # 0.1 Basophils % 0.5 Blood Urea Nitrogen 12 Calcium Level 9.9 Carbon Dioxide Level 26 Chloride Level 103 Creatinine 0.84 D-Dimer < 460.00 D-Dimer Comment Eosinophils # 0.9 H Eosinophils % 6.0 Glucose Level 126 Hematocrit 51.3 Hemoglobin 17.7 INR International Normalized Ratio 0.94 Lactic Acid Level 2.4 H Lymphocytes # 1.1 Lymphocytes % 6.9 L Mean Corpuscular Hemoglobin 31.2 Mean Corpuscular Hemoglobin Concent 34.5 Mean Corpuscular Volume 90.5 Mean Platelet Volume 9.3 Monocytes # 0.8 Monocytes % 5.0 Neutrophils # 12.5 H Neutrophils % 81.6 H Nucleated Red Blood Cells # 0.0 Nucleated Red Blood Cells % 0.0 Platelet Count 205 Potassium Level 4.0 Prothrombin Time 12.6 Prothrombin Time Ratio 1.0 Red Blood Count 5.67 Red Cell Distribution Width 13.8 Sodium Level 145 H Troponin I < 0.012 White Blood Count 15.3 H Arterial Blood HCO3 24.5 23.1 Arterial Blood Base Excess -2.2 -3.4 L Arterial Blood Oxygen Saturation 99.0 H 99.7 H Joni Test ACCEPTAB ACCEPTAB Arterial Blood Gas Puncture Site Right Radial Right Radial Arterial Blood Carboxyhemoglobin 0.3 0 Arterial Blood Date Drawn 05/28/2016 2:22:35 PM 05/28/2016 5:34:29 PM Arterial Blood Methemoglobin 0.6 0.6 Arterial Blood pCO2 (Temp correct) 48.4 H 46.8 H Arterial Blood pH (Temp corrected) 7.322 L 7.312 L Arterial Blood pO2 (Temp corrected) 198.1 H 532.6 H Blood Gas A-a O2 Differential 176.5 H 133.6 H Blood Gas Actual Respiration Rate 40 24 Blood Gas IPAP/EPAP Ratio 18/5 Blood Gas Modality MASK - BIPAP VENT - AC Blood Gas Notified Time 05/28/2016 2:31:01 PM 05/28/2016 5:44:07 PM Blood Gas Notified Whom Mario MLouisa Blood Gas Pressure Support 13 Blood Gas Respiration Rate 14.0 24.0 Blood Gas Specimen Source Blood arterial Blood arterial Blood Gas Temperature 37.0 37.0 FiO2 60.0 100.0 Oxyhemoglobin Percent 98.1 99.1 H Total Hemoglobin 18.4 H 16.3 Urine Bilirubin NEGATIVE Urine Clarity CLEAR Urine Color LT. YELLOW Urine Glucose NEGATIVE Urine Hemoglobin 1+ H Urine Ketones 15 Urine Leukocyte Esterase NEGATIVE Urine Microscopic RBC 2-5 Urine Microscopic WBC 0-2 Urine Nitrite NEGATIVE Urine Specific [place] >=1.030 H Urine Total Protein NEGATIVE Urine Urobilinogen 0.2 E.U./dL Urine pH 5.5 Blood Gas Low PEEP Setting 5.0 Blood Gas Tidal Volume 500.0 Test 05/28/16 21:30 05/28/16 21:46 05/28/16 23:17 05/29/16 01:32 Lactic Acid Level 1.5 Creatine Kinase 400 H 353 H Creatine Kinase Index 1.4 1.4 Creatinine Kinase MB (Mass) 5.48 H 4.84 H Magnesium Level 2.7 H Troponin I < 0.012 < 0.012 Arterial Blood HCO3 22.5 Arterial Blood Base Excess -1.7 Arterial Blood Oxygen Saturation 97.4 Joni Test ACCEPTAB Arterial Blood Gas Puncture Site Right Radial Arterial Blood Carboxyhemoglobin 0.2 Arterial Blood Date Drawn 05/28/2016 11:17:45 PM Arterial Blood Methemoglobin 0.3 Arterial Blood pCO2 (Temp correct) 36.6 Arterial Blood pH (Temp corrected) 7.406 Arterial Blood pO2 (Temp corrected) 87.8 Blood Gas A-a O2 Differential 83.1 H Blood Gas Actual Respiration Rate 24 Blood Gas Inspiratory Pressure 30.0 Blood Gas Low PEEP Setting 5.0 Blood Gas Modality VENT - AC Blood Gas Notified Time 05/28/2016 11:26:06 PM Blood Gas Notified 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 Blood Gas Respiration Rate 24.0 Blood Gas Specimen Source Blood arterial Blood Gas Temperature 37.0 Blood Gas Tidal Volume 550.0 FiO2 30.0 Oxyhemoglobin Percent 96.9 Total Hemoglobin 16.0 Test 05/29/16 05:30 05/29/16 07:00 Anion Gap 19 H Basophils # 0.0 Basophils % 0.1 Blood Urea Nitrogen 17 Calcium Level 8.5 Carbon Dioxide Level 21 Chloride Level 106 Creatinine 0.79 Eosinophils # 0.0 Eosinophils % 0.0 Glucose Level 154 Hematocrit 43.2 Hemoglobin 15.0 Lymphocytes # 0.4 L Lymphocytes % 4.0 L Mean Corpuscular Hemoglobin 31.5 Mean Corpuscular Hemoglobin Concent 34.7 Mean Corpuscular Volume 90.9 Mean Platelet Volume 9.1 Monocytes # 0.1 L Monocytes % 1.0 Neutrophils # 9.4 H Neutrophils % 94.9 H Nucleated Red Blood Cells # 0.0 Nucleated Red Blood Cells % 0.0 Platelet Count 162 # Potassium Level 4.7 Red Blood Count 4.75 Red Cell Distribution Width 13.7 Sodium Level 141 White Blood Count 9.9 # Arterial Blood HCO3 23.8 Arterial Blood Base Excess -1.7 Arterial Blood Oxygen Saturation 97.5 Joni Test ACCEPTAB Arterial Blood Gas Puncture Site Right Radial Arterial Blood Carboxyhemoglobin 0.7 Arterial Blood Date Drawn 05/29/2016 7:20:52 AM Arterial Blood Methemoglobin 0.4 Arterial Blood pCO2 (Temp correct) 42.9 Arterial Blood pH (Temp corrected) 7.362 Arterial Blood pO2 (Temp corrected) 90.6 Blood Gas A-a O2 Differential 72.9 H Blood Gas Actual Respiration Rate 24 Blood Gas Low PEEP Setting 5.0 Blood Gas Modality VENT - AC Blood Gas Notified Time 05/29/2016 8:11:09 AM Blood Gas Notified Whom JLD Blood Gas Respiration Rate 24.0 Blood Gas Specimen Source Blood arterial Blood Gas Temperature 37.0 Blood Gas Tidal Volume 550.0 FiO2 30.0 Oxyhemoglobin Percent 96.4 Total Hemoglobin 16.5 Medications Medications Current Medications Sodium Chloride (NS) 1,000 ml @ 50 mls/hr Q20H IV Last administered on t 21:47; Admin Dose 50 MLS/HR; Start 05/28/16 at 16:41 Flumazenil (Romazicon) 0.2 mg Q1M PRN IV BENZODIAZEPINE OVERDOSE; Start at 17:00 Ondansetron HCl (Zofran Inj) 4 mg Q6H PRN IV NAUSEA AND/OR VOMITING; Start 05/28 at 17:00 Nitroglycerin (Nitroglycerin (Sl Tab) 0.4 Mg) 1 tab Q5M PRN SL CHEST PAIN; Start 05/28/16 at 17:00 Acetaminophen (Tylenol Supp) 650 mg Q4H PRN [place] PAIN LEVEL 1-3 OR FEVER; Start 05/28/16 at 17:00 Morphine Sulfate (morphine) 2 mg Q4H PRN IV PAIN LEVEL 7-10; Start 05/28/16 at 17:00 Lorazepam (Ativan) 1 mg Q2H PRN IV ANXIETY Last administered on 05/29/16 01:07 ; Admin Dose 1 MG; Start 05/28/16 at 17:00 Famotidine (Pepcid Iv) 20 mg Q12 IV Last administered on 05/28/16 22:01; Admin Dose 20 MG; Start 05/28/16 at 21:00 Enoxaparin Sodium 40 mg 40 mg DAILY SC ; Start 05/29/16 at 09:00 Dexmedetomidine HCl/Sodium Chloride (Precedex/NS) 50 ml @ 3.35 mls/hr TITRATE IV Last administered on 05/29/16 05:35; Admin Dose 11.72 MLS/HR; Start 05/28/16 at 17:00 Methylprednisolone Sodium Succinate (Solu-Medrol) 125 mg Q6 IV ; Start 05/29/16 at 08:[address] neck IMPRESSION: 1. No evidence for a peritonsillar or retropharyngeal abscess. 2. No significant lymphadenopathy. 3. Endotracheal tube tip above the le. 4. Degenerative changes of the cervical spine greatest at C5-6. 5. Diffuse paranasal sinus mucosal thickening. ARCADIO MANCILLA MD May 29, 2016 08:47
[2016-05-29] MEDS ORDERED: CEFEPIME 1GM/50 ML (PMX) 50 ML IV SCH (09:00)
[2016-05-29] MEDS: FAMOTIDINE 20 MG INJ IV SCH ×2 (09:00→20:25)
[2016-05-29] MEDS: ENOXAPARIN 40 MG/0.4 ML SYG SC SCH (09:05)
--- NOTE | 2016-05-29 14:13 | RADRPT ---
Echocardiogram Report Patient Name: MALLY SOTO Gender: Male Date: 1975 Study Date: 28-May-2016 [employer] Tank Operator: Varun Bal RDCS Location: [facility] Ref. Physician: WILLIAMS ANDINO Quality: Adequate Procedures: Transthoracic echocardiogram with complete 2D, M-Mode, and doppler examination. Indications: Pericardial Effusion vs chf. 2D/M Mode Doppler Measurement Value Normal Ranges Measurement Value Normal Ranges LVIDd 2D 3.2 3.5 - 5.6 cm AV Peak Vern 1.1 m/sec LVIDs 2D 1.9 2.1 - 4.1 cm AV Peak PG 5.3 mmHg LVPWd 2D 1.0 0.6 - 1.1 cm LVOT Peak Vern 1.1 m/sec IVSd 2D 0.9 0.6 - 1.1 cm MV E Peak Vern 0.8 m/sec AoR Diam 2D 3.1 2.0 - 3.7 cm MV A Peak Vern 0.9 m/sec LA Dimen 2D 2.6 2.3 - 4.0 cm MV E/A 0.9 MV Decel Time 82 msec MV Decel Vil[place] 9 MV E/A 0.9 Findings Left Ventricle: Normal left ventricular systolic function. Normal left ventricular cavity size. Normal left ventricular wall thickness. Ejection fraction is visually estimated at 55 %. Tissue Doppler/Mitral Doppler indices are consistent with impaired relaxation (Stage I diastolic dysfunction). Right Ventricle: Normal right ventricular size. Normal right ventricular systolic function. Left Atrium: The left atrium is normal in size. Right Atrium: The right atrium is normal in size. Mitral Valve: Normal appearance and function of the mitral valve with trace physiologic regurgitation. Aortic Valve: Normal appearance of the aortic valve. No significant aortic stenosis or insufficiency. Tricuspid Valve: Normal appearance and function of the tricuspid valve with trace physiologic regurgitation. Normal right ventricular systolic pressure. Pericardium: Normal pericardium with no significant pericardial effusion. Aorta: Normal aortic root. IVC: Normal size and normal respiratory collapse consistent with normal right atrial pressure. Conclusions 1.Normal left ventricular systolic function. Normal left ventricular cavity size. Normal left ventricular wall thickness. Ejection fraction is visually estimated at 55 %. Tissue Doppler/Mitral Doppler indices are consistent with impaired relaxation (Stage I diastolic dysfunction). 2.Normal appearance and function of the mitral valve with trace physiologic regurgitation. 3.Normal appearance and function of the tricuspid valve with trace physiologic regurgitation. Normal right ventricular systolic pressure. Electronically Signed By: Jesus Kuo 29-May-2016 14:12:01 -0800 Patient Name: MALLY SOTO Study Date: 28-May-[id number]
[2016-05-29] MEDS: SOD CHLORIDE 0.9% 1,000 ML IV SCH (17:29)
[2016-05-30] VITALS (43 sets, daily range): BP systolic 111–152; BP diastolic 68–96; PULSE 61–105; RESP 17–26
[2016-05-30] MEDS: DEXMEDETOMIDINE HCL 200 MCG in SOD CHLORIDE 0.9% 48 ML IV SCH ×2 (01:11→05:27)
[2016-05-30] MEDS: ALBUTEROL HFA 8 GM INHALER INH SCH ×3 (01:20→09:30)
[2016-05-30] MEDS: IPRATROPIUM (HFA) 12.9 GM INHALER INH SCH ×3 (01:20→09:30)
[2016-05-30] MEDS: METHYLPREDNISOLONE 125 MG INJ IV SCH ×3 (05:30→17:42)
[2016-05-30 05:56] LABS: ADD SCAN DIFF NO
[2016-05-30 06:24] LABS: ABNORMAL IP MESSAGE 1; HEMATOCRIT 42.4 % (42.0-52.0); HEMOGLOBIN 14.4 g/dl (14.0-18.0); LYMPHOCYTES # 0.5 10^3/ul (0.8-2.9); LYMPHOCYTES % 5.9 % (15.0-51.0); MEAN CORPUSCULAR HEMOGLOBIN 30.7 pg (29.0-33.0); MEAN CORPUSCULAR VOLUME 90.4 fl (82.0-101.0); MEAN PLATELET VOLUME 10.9 fl (7.4-10.4); MONOCYTE # 0.2 10^3/ul (0.3-0.9); NEUTROPHIL # 7.8 10^3/ul (1.6-7.5); NEUTROPHILS % 91.2 % (39.0-77.0); PLATELET COUNT 162 10^3/UL (140-415); RED BLOOD COUNT 4.69 10^6/ul (4.70-6.10); RED CELL DISTRIBUTION WIDTH 12.9 % (11.5-14.5); WHITE BLOOD COUNT 8.5 10^3/ul (4.8-10.8)
[2016-05-30 06:36] LABS: POTASSIUM 4.1 mmol/L (3.5-5.1)
[2016-05-30 06:38] LABS: CREATININE 0.8 mg/dl (0.61-1.24)
[2016-05-30 06:39] LABS: CALCIUM 8.5 mg/dl (8.4-10.2)
--- NOTE | 2016-05-30 08:34 | PN ---
Date/Time of Note Date/Time of Note DATE: 05/30/16 TIME: 08:29 Assessment/Plan VTE Prophylaxis VTE Prophylaxis Intervention: LMWH Lines/Catheters IV Catheter Type (from Nrsg): Peripheral IV Urinary Cath still in place: Yes Reason Cath still needed: urinary retention Assessment/Plan Assessment/Plan 40 yo male with a past medical history of smoking, questionable asthma, who presents with acute shortness of breath. 1. Acute hypoxemic respiratory failure requiring intubation - increased steroids - appreciate pulm recs - wean as tolerated 2. Throat infection - possible abscess - CT chest is negative 3. Sepsis 2/2 possible atypical pneumonia - broad spectrum antibiotics - de- escalate as per pulm - improving 4. 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 GI ppx - pepcid IV 6. DVT ppx - lovenox dispo - f/u recs, possible extubation today, as per clinical course, ABG today this critical care note took greater than 40 min to complete Subjective 24 Hr Interval Summary Free Text/Dictation Patient had no overnight events. He is doing better today. Otherwise spoke to the patient and nurse about the care plan. 15 minutes spent. Exam/Review of Systems Vital Signs Vitals Vital Signs Date Time Temp Pulse Resp B/P Pulse Ox O2 Delivery O2 Flow Rate FiO2 05/30/16 08:24 30 05/30/16 07:30 99.0 61 24 140/89 99 Mechanical Ventilator 05/28/16 14:44 8 Intake and Output 05/29/16 05/29/16 05/30/16 15:00 23:00 07:00 Intake Total 360.28 ml 443.8 ml 443.8 ml Output Total 575 ml 555 ml 465 ml Balance -214.72 ml -111.2 ml -21.2 ml Exam Gen Kenneth: intubated and sedated HEENT: NC/AT, PERRLA, ETT in place with copious secretions NECK: supple, no thyromegaly THORAX: symmetrical, no obvious deformities CV: S1S2, RRR, no M/G/R Lungs: coarse breath sounds, inspiratory and expiratory wheezing, no crackles- worsening wheezing Abd: soft, NT/ND, +BS, no rebound, no guarding, neg HSM EXT: no edema, no ecchymosis, no clubbing, FROM Neuro: sedated Psych: cannot assess Skin: C/D/I Results Result Diagram: 05/30/16 0540 05/30/16 0540 Results 24 hrs Laboratory Tests Test 05/30/16 05:40 Anion Gap 17 H Basophils # 0.0 Basophils % 0.0 Blood Urea Nitrogen 28 #H Calcium Level 8.5 Carbon Dioxide Level 22 Chloride Level 108 Creatinine 0.80 Eosinophils # 0.0 Eosinophils % 0.0 Glucose Level 154 Hematocrit 42.4 Hemoglobin 14.4 Lymphocytes # 0.5 L Lymphocytes % 5.9 L Mean Corpuscular Hemoglobin 30.7 Mean Corpuscular Hemoglobin Concent 34.0 Mean Corpuscular Volume 90.4 Mean Platelet Volume 10.9 H Monocytes # 0.2 L Monocytes % 2.0 Neutrophils # 7.8 H Neutrophils % 91.2 H Nucleated Red Blood Cells # 0.0 Nucleated Red Blood Cells % 0.0 Platelet Count 162 Potassium Level 4.1 Red Blood Count 4.69 L Red Cell Distribution Width 12.9 Sodium Level 143 White Blood Count 8.5 Medications Medications Current Medications Sodium Chloride (NS) 1,000 ml @ 50 mls/hr Q20H IV Last administered on 17:29; Admin Dose 50 MLS/HR; Start 05/28/16 at 16:41 Flumazenil (Romazicon) 0.2 mg Q1M PRN IV BENZODIAZEPINE OVERDOSE; Start at 17:00 Ondansetron HCl (Zofran Inj) 4 mg Q6H PRN IV NAUSEA AND/OR VOMITING; Start 05/28 at 17:00 Nitroglycerin (Nitroglycerin (Sl Tab) 0.4 Mg) 1 tab Q5M PRN SL CHEST PAIN; Start 05/28/16 at 17:00 Acetaminophen (Tylenol Supp) 650 mg Q4H PRN MD PAIN LEVEL 1-3 OR FEVER; Start 05/28/16 at 17:00 Morphine Sulfate (morphine) 2 mg Q4H PRN IV PAIN LEVEL 7-10; Start 05/28/16 at 17:00 Lorazepam (Ativan) 1 mg Q2H PRN IV ANXIETY Last administered on 05/29/16 01:07 ; Admin Dose 1 MG; Start 05/28/16 at 17:00 Famotidine (Pepcid Iv) 20 mg Q12 IV Last administered on 05/29/16 20:25; Admin Dose 20 MG; Start 05/28/16 at 21:00 Enoxaparin Sodium 40 mg 40 mg DAILY SC Last administered on 05/29/16 09:05; Admin Dose 40 MG; Start 05/29/16 at 09:00 Dexmedetomidine HCl/Sodium Chloride (Precedex/NS) 50 ml @ 3.35 mls/hr TITRATE IV Last administered on 05/30/16 05:27; Admin Dose 13.4 MLS/HR; Start 05/28/16 at 17:00 Methylprednisolone Sodium Succinate (Solu-Medrol) 125 mg Q6 IV Last administered on 05/30/16 05:30; Admin Dose 125 MG; Start 05/29/16 at 08:00 ARCADIO MANCILLA MD May 30, 2016 08:33
--- NOTE | 2016-05-30 08:42 | CONS ---
Date/Time of Note Date/Time of Note DATE: 05/30/16 TIME: 08:39 Assessment/Plan Assessment/Plan Additional Assessment/Plan Ventilator settings are AC of 24, tidal volume 550, PEEP of 5, 30% FiO2. Assessment and recommendations; 1. Patient admitted with severe asthma exacerbation with significant clinical improvement. Ventilator settings were adjusted, patient has been switched over to SIMV with a rate of 14, pressure support of 10 with continuation of 550 tidal volume and 30% FiO2. An ABG will be performed in 45 minutes. Weaning from mechanical ventilation will depend upon ABG results. Meanwhile continue current treatment. Consultation Date/Type/Reason Admit Date/Time May 28, 2016 at 16:41 Type of Consultation: Pulmonary/critical care 24 HR Interval Summary Free Text/Dictation Patient condition remains critical. Per the patient has remained hemodynamically stable. Despite being on low-dose of Precedex patient is totally awake and alert. General examination; young male, currently in no distress awake and alert. Exam/Review of Systems Vital Signs Vitals Vital Signs Date Time Temp Pulse Resp B/P Pulse Ox O2 Delivery O2 Flow Rate FiO2 05/30/16 08:24 30 05/30/16 07:30 99.0 61 24 140/89 99 Mechanical Ventilator 05/28/16 14:44 8 Intake and Output 05/29/16 05/29/16 05/30/16 15:00 23:00 07:00 Intake Total 360.28 ml 443.8 ml 443.8 ml Output Total 575 ml 555 ml 465 ml Balance -214.72 ml -111.2 ml -21.2 ml Exam H EENT examination; supple neck, no JVD. No lymphadenopathy. Midline trachea. No thyromegaly. Pupils are midsize reactive to light. Orally intubated. Chest examination; clear to auscultation bilaterally no added sounds. S1-S2 audible, no murmurs. Regular rhythm. Abdomen examination; soft, nontender, no organomegaly. Bowel sounds audible. Extremity examination; no peripheral edema. TOOTH CUTTER examination; patient is awake, follows commands moves all 4 extremities. Results Result Diagram: 05/30/16 0540 05/30/16 0540 Results 24 hrs Laboratory Tests Test 05/30/16 05:40 Anion Gap 17 H Basophils # 0.0 Basophils % 0.0 Blood Urea Nitrogen 28 #H Calcium Level 8.5 Carbon Dioxide Level 22 Chloride Level 108 Creatinine 0.80 Eosinophils # 0.0 Eosinophils % 0.0 Glucose Level 154 Hematocrit 42.4 Hemoglobin 14.4 Lymphocytes # 0.5 L Lymphocytes % 5.9 L Mean Corpuscular Hemoglobin 30.7 Mean Corpuscular Hemoglobin Concent 34.0 Mean Corpuscular Volume 90.4 Mean Platelet Volume 10.9 H Monocytes # 0.2 L Monocytes % 2.0 Neutrophils # 7.8 H Neutrophils % 91.2 H Nucleated Red Blood Cells # 0.0 Nucleated Red Blood Cells % 0.0 Platelet Count 162 Potassium Level 4.1 Red Blood Count 4.69 L Red Cell Distribution Width 12.9 Sodium Level 143 White Blood Count 8.5 Medications Medications Current Medications Sodium Chloride (NS) 1,000 ml @ 50 mls/hr Q20H IV Last administered on 17:29; Admin Dose 50 MLS/HR; Start 05/28/16 at 16:41 Flumazenil (Romazicon) 0.2 mg Q1M PRN IV BENZODIAZEPINE OVERDOSE; Start at 17:00 Ondansetron HCl (Zofran Inj) 4 mg Q6H PRN IV NAUSEA AND/OR VOMITING; Start 05/28 at 17:00 Nitroglycerin (Nitroglycerin (Sl Tab) 0.4 Mg) 1 tab Q5M PRN SL CHEST PAIN; Start 05/28/16 at 17:00 Acetaminophen (Tylenol Supp) 650 mg Q4H PRN [place] PAIN LEVEL 1-3 OR FEVER; Start 05/28/16 at 17:00 Morphine Sulfate (morphine) 2 mg Q4H PRN IV PAIN LEVEL 7-10; Start 05/28/16 at 17:00 Lorazepam (Ativan) 1 mg Q2H PRN IV ANXIETY Last administered on 05/29/16 01:07 ; Admin Dose 1 MG; Start 05/28/16 at 17:00 Famotidine (Pepcid Iv) 20 mg Q12 IV Last administered on 05/29/16 20:25; Admin Dose 20 MG; Start 05/28/16 at 21:00 Enoxaparin Sodium 40 mg 40 mg DAILY SC Last administered on 05/29/16 09:05; Admin Dose 40 MG; Start 05/29/16 at 09:00 Dexmedetomidine HCl/Sodium Chloride (Precedex/NS) 50 ml @ 3.35 mls/hr TITRATE IV Last administered on 05/30/16 05:27; Admin Dose 13.4 MLS/HR; Start 05/28/16 at 17:00 Methylprednisolone Sodium Succinate (Solu-Medrol) 125 mg Q6 IV Last administered on 05/30/16 05:30; Admin Dose 125 MG; Start 05/29/16 at 08:00 MARY LOU COOK May 30, 2016 08:42
[2016-05-30] MEDS: FAMOTIDINE 20 MG INJ IV SCH ×2 (08:56→21:41)
[2016-05-30] MEDS: ENOXAPARIN 40 MG/0.4 ML SYG SC SCH (08:59)
[2016-05-30 09:59] LABS: AADO2 Arterial 54.3 mmHg (7.0-24.0); Allen Test ACCEPTAB; Arterial Base Excess -0.9 mmol/L (-3.0-3); Arterial COHb 0.3 % (0.0-3.0); Arterial Fraction of Oxyhgb 97.6 % (93.0-99.0); Arterial HCO3 22.5 mmol/L (22.0-26.0); Arterial MetHb 0.4 % (0.0-1.5); Arterial Total Hemglobin 15.7 g/dl (12.0-18.0); Blood Gas PS 10; MODE VENT - SIMV
[2016-05-30 10:58] LABS: AADO2 Arterial 74.7 mmHg (7.0-24.0); Allen Test ACCEPTAB; Arterial Base Excess -3.9 mmol/L (-3.0-3); Arterial COHb 0.3 % (0.0-3.0); Arterial Fraction of Oxyhgb 97.1 % (93.0-99.0); Arterial HCO3 19.4 mmol/L (22.0-26.0); Arterial MetHb 0.4 % (0.0-1.5); Arterial Total Hemglobin 15.3 g/dl (12.0-18.0); Blood Gas PS 10; MODE VENT - CPAP
[2016-05-30] MEDS: SOD CHLORIDE 0.9% 1,000 ML IV SCH (12:59)
[2016-05-30] MEDS: ALBUTEROL/IPRATROPIUM (NEB) 3 ML AMP HHN SCH (20:41)
[2016-05-31] VITALS (10 sets, daily range): BP systolic 113–149; BP diastolic 62–82; PULSE 65–95; RESP 18–20
[2016-05-31] MEDS: METHYLPREDNISOLONE 125 MG INJ IV SCH ×5 (00:46→23:16)
[2016-05-31] MEDS: ALBUTEROL/IPRATROPIUM (NEB) 3 ML AMP HHN SCH ×4 (02:05→19:45)
[2016-05-31 07:57] LABS: ADD SCAN DIFF NO
[2016-05-31 08:06] LABS: POTASSIUM 3.9 mmol/L (3.5-5.1)
[2016-05-31 08:07] LABS: BASOPHILS % 0.1 % (0.0-2.0); HEMATOCRIT 44.3 % (42.0-52.0); HEMOGLOBIN 15.3 g/dl (14.0-18.0); LYMPHOCYTES # 0.3 10^3/ul (0.8-2.9); LYMPHOCYTES % 2.9 % (15.0-51.0); MEAN CORPUSCULAR HEMOGLOBIN 31.5 pg (29.0-33.0); MEAN CORPUSCULAR HGB CONC 34.4 g/dl (32.0-37.0); MEAN CORPUSCULAR VOLUME 91.4 fl (82.0-101.0); MEAN PLATELET VOLUME 9.1 fl (7.4-10.4); MONOCYTE # 0.2 10^3/ul (0.3-0.9); MONOCYTES % 1.6 % (0.0-11.0); NEUTROPHILS % 95.4 % (39.0-77.0); PLATELET COUNT 144 10^3/UL (140-440); RED BLOOD COUNT 4.85 10^6/ul (4.70-6.10); RED CELL DISTRIBUTION WIDTH 13.5 % (11.5-14.5); WHITE BLOOD COUNT 10.4 10^3/ul (4.8-10.8)
[2016-05-31 08:09] LABS: CREATININE 0.7 mg/dl (0.61-1.24)
[2016-05-31 08:10] LABS: CALCIUM 8.4 mg/dl (8.4-10.2)
[2016-05-31] MEDS: ENOXAPARIN 40 MG/0.4 ML SYG SC SCH (09:06)
[2016-05-31] MEDS: FAMOTIDINE 20 MG INJ IV SCH ×2 (09:07→20:13)
--- NOTE | 2016-05-31 10:24 | PN ---
Date/Time of Note Date/Time of Note DATE: 05/31/16 TIME: 10:23 Assessment/Plan VTE Prophylaxis VTE Prophylaxis Intervention: SCD's Lines/Catheters IV Catheter Type (from Nrs): Peripheral IV Urinary Cath still in place: No Assessment/Plan Assessment/Plan 40 yo male with a past medical history of smoking, questionable asthma, who presents with acute shortness of breath. 1. Acute hypoxemic respiratory failure requiring intubation - increased steroids - appreciate pulm recs - wean as tolerated - extubated 05/30/2016 - continue with steroids 2. Throat infection - possible abscess - CT chest is negative 3. Sepsis / possible atypical pneumonia - broad spectrum antibiotics - de- escalate as per pulm - improving - no antibiotics 4. 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 GI ppx - pepcid IV 6. DVT ppx - lovenox dispo - f/u recs, as per clinical course, discharge planning this progress note took greater than 40 minutes to complete Subjective 24 Hr Interval Summary Free Text/Dictation Patient was transferred to telemetry. No overnight events. Spoke to the patient about the care plan. 15 minutes spent. Exam/Review of Systems Vital Signs Vitals Vital Signs Date Time Temp Pulse Resp B/P Pulse Ox O2 Delivery O2 Flow Rate FiO2 05/31/16 08:19 65 05/31/16 08:06 98.6 19 130/78 95 05/31/16 02:05 21 05/30/16 18:15 Room Air 05/30/16 14:30 2.0 Intake and Output 05/30/16 05/30/16 05/31/16 15:00 23:00 07:00 Intake Total 613.4 ml 290 ml 650 ml Output Total 885 ml 240 ml 650 ml Balance -271.6 ml 50 ml 0 ml Exam Gen Kenneth: intubated and sedated HEENT: NC/AT, PERRLA, ETT in place with copious secretions NECK: supple, no thyromegaly THORAX: symmetrical, no obvious deformities CV: S1S2, RRR, no M/G/R Lungs: CTAB no w/c/r/r Abd: soft, NT/ND, +BS, no rebound, no guarding, neg HSM EXT: no edema, no ecchymosis, no clubbing, FROM Neuro: sedated Psych: cannot assess Skin: C/D/I Results Result Diagram: 05/31/16 0746 05/31/16 0746 Results 24 hrs Laboratory Tests Test 05/30/16 10:30 05/31/16 07:46 Arterial Blood HCO3 19.4 L Arterial Blood Base Excess -3.9 L Arterial Blood Oxygen Saturation 97.8 Joni Test ACCEPTAB Arterial Blood Gas Puncture Site Right Radial Arterial Blood Carboxyhemoglobin 0.3 Arterial Blood Date Drawn 05/30/2016 10:45:04 AM Arterial Blood Methemoglobin 0.4 Arterial Blood pCO2 (Temp correct) 31.1 L Arterial Blood pH (Temp corrected) 7.414 Arterial Blood pO2 (Temp corrected) 102.7 H Blood Gas A-a O2 Differential 74.7 H Blood Gas Actual Respiration Rate 22 Blood Gas Low PEEP Setting 5.0 Blood Gas Modality VENT - CPAP Blood Gas Notified Time 05/30/2016 10:58:45 AM Blood Gas Notified Whom JLD Blood Gas Pressure Support 10 Blood Gas Specimen Source Blood arterial Blood Gas Temperature 37.0 FiO2 30.0 Oxyhemoglobin Percent 97.1 Total Hemoglobin 15.3 Anion Gap 15 Basophils # 0.0 Basophils % 0.1 Blood Urea Nitrogen 24 H Calcium Level 8.4 Carbon Dioxide Level 25 Chloride Level 105 Creatinine 0.70 Eosinophils # 0.0 Eosinophils % 0.0 Glucose Level 127 Hematocrit 44.3 Hemoglobin 15.3 Lymphocytes # 0.3 L Lymphocytes % 2.9 L Mean Corpuscular Hemoglobin 31.5 Mean Corpuscular Hemoglobin Concent 34.4 Mean Corpuscular Volume 91.4 Mean Platelet Volume 9.1 Monocytes # 0.2 L Monocytes % 1.6 Neutrophils # 10.0 H Neutrophils % 95.4 H Nucleated Red Blood Cells # 0.0 Nucleated Red Blood Cells % 0.0 Platelet Count 144 Potassium Level 3.9 Red Blood Count 4.85 Red Cell Distribution Width 13.5 Sodium Level 141 White Blood Count 10.4 # Medications Medications Current Medications Flumazenil (Romazicon) 0.2 mg Q1M PRN IV BENZODIAZEPINE OVERDOSE; Start at 17:00 Ondansetron HCl (Zofran Inj) 4 mg Q6H PRN IV NAUSEA AND/OR VOMITING; Start 05/28 at 17:00 Nitroglycerin (Nitroglycerin (Sl Tab) 0.4 Mg) 1 tab Q5M PRN SL CHEST PAIN; Start 05/28/16 at 17:00 Acetaminophen (Tylenol Supp) 650 mg Q4H PRN [place] PAIN LEVEL 1-3 OR FEVER; Start 05/28/16 at 17:00 Morphine Sulfate (morphine) 2 mg Q4H PRN IV PAIN LEVEL 7-10; Start 05/28/16 at 17:00 Lorazepam (Ativan) 1 mg Q2H PRN IV ANXIETY Last administered on 05/29/16 01:07 ; Admin Dose 1 MG; Start 05/28/16 at 17:00 Famotidine (Pepcid Iv) 20 mg Q12 IV Last administered on 05/31/16 09:07; Admin Dose 20 MG; Start 05/28/16 at 21:00 Enoxaparin Sodium (Lovenox) 40 mg DAILY SC Last administered on 05/31/16 09:06 ; Admin Dose 40 MG; Start 05/29/16 at 09:00 Methylprednisolone Sodium Succinate (Solu-Medrol) 125 mg Q6 IV Last administered on 05/31/16 06:16; Admin Dose 125 MG; Start 05/29/16 at 08:00 ARCADIO MANCILLA MD May 31, 2016 10:24
--- NOTE | 2016-05-31 18:22 | CONS ---
Date/Time of Note Date/Time of Note DATE: 05/31/16 TIME: 18:20 Consult Date/Type/Reason Admit Date/Time May 28, 2016 at 16:41 Initial Consult Date Type of Consultation: Pulmonary/critical care Subjective Doing well; denies SOB Objective Vital Signs Date Time Temp Pulse Resp B/P Pulse Ox O2 Delivery O2 Flow Rate FiO2 05/31/16 14:40 98.5 92 18 121/75 95 05/31/16 13:10 21 05/30/16 18:15 Room Air 05/30/16 14:30 2.0 Intake and Output 05/30/16 05/30/16 05/31/16 15:00 23:00 07:00 Intake Total 613.4 ml 290 ml 650 ml Output Total 885 ml 240 ml 650 ml Balance -271.6 ml 50 ml 0 ml HEENT: Neck supple; no JVD; no LAD CVS: RRR, S1 and S2 CHEST: Clear with no wheezing ABD: Soft, NT, + BS EXT: No c/c/e Results/Medications Result Diagram: 05/31/16 0746 05/31/16 0746 Results 24 hrs Laboratory Tests Test 05/31/16 07:46 Anion Gap 15 Basophils # 0.0 Basophils % 0.1 Blood Urea Nitrogen 24 H Calcium Level 8.4 Carbon Dioxide Level 25 Chloride Level 105 Creatinine 0.70 Eosinophils # 0.0 Eosinophils % 0.0 Glucose Level 127 Hematocrit 44.3 Hemoglobin 15.3 Lymphocytes # 0.3 L Lymphocytes % 2.9 L Mean Corpuscular Hemoglobin 31.5 Mean Corpuscular Hemoglobin Concent 34.4 Mean Corpuscular Volume 91.4 Mean Platelet Volume 9.1 Monocytes # 0.2 L Monocytes % 1.6 Neutrophils # 10.0 H Neutrophils % 95.4 H Nucleated Red Blood Cells # 0.0 Nucleated Red Blood Cells % 0.0 Platelet Count 144 Potassium Level 3.9 Red Blood Count 4.85 Red Cell Distribution Width 13.5 Sodium Level 141 White Blood Count 10.4 # Medications Current Medications Flumazenil (Romazicon) 0.2 mg Q1M PRN IV BENZODIAZEPINE OVERDOSE; Start at 17:00 Ondansetron HCl (Zofran Inj) 4 mg Q6H PRN IV NAUSEA AND/OR VOMITING; Start 05/28 at 17:00 Nitroglycerin (Nitroglycerin (Sl Tab) 0.4 Mg) 1 tab Q5M PRN SL CHEST PAIN; Start 05/28/16 at 17:00 Acetaminophen (Tylenol Supp) 650 mg Q4H PRN [place] PAIN LEVEL 1-3 OR FEVER; Start 05/28/16 at 17:00 Morphine Sulfate (morphine) 2 mg Q4H PRN IV PAIN LEVEL 7-10; Start 05/28/16 at 17:00 Lorazepam (Ativan) 1 mg Q2H PRN IV ANXIETY Last administered on 05/29/16 01:07 ; Admin Dose 1 MG; Start 05/28/16 at 17:00 Famotidine (Pepcid Iv) 20 mg Q12 IV Last administered on 05/31/16 09:07; Admin Dose 20 MG; Start 05/28/16 at 21:00 Enoxaparin Sodium (Lovenox) 40 mg DAILY SC Last administered on 05/31/16 09:06 ; Admin Dose 40 MG; Start 05/29/16 at 09:00 Methylprednisolone Sodium Succinate (Solu-Medrol) 125 mg Q6 IV Last administered on 05/31/16 17:08; Admin Dose 125 MG; Start 05/29/16 at 08:00 Assessment/Plan Additional Assessment/Plan IMP: 1. s/p Acute Resp Failure 2. Asthma Exacerbation RECS: 1. CS taper 2. LABA/ICS 3. Obtain IgE level 4. Outpatient PFT and Pulm f/u MARQUISE ESCOBAR MD May 31, 2016 18:22
[2016-06-01] MEDS: ALBUTEROL/IPRATROPIUM (NEB) 3 ML AMP HHN SCH ×2 (02:58→10:33)
[2016-06-01] MEDS: METHYLPREDNISOLONE 125 MG INJ IV SCH ×2 (05:29→12:14)
[2016-06-01 06:16] LABS: BASOPHILS % 0.1 % (0.0-2.0); HEMATOCRIT 44.6 % (42.0-52.0); HEMOGLOBIN 15.3 g/dl (14.0-18.0); LYMPHOCYTES # 0.3 10^3/ul (0.8-2.9); LYMPHOCYTES % 3.7 % (15.0-51.0); MEAN CORPUSCULAR HEMOGLOBIN 31.4 pg (29.0-33.0); MEAN CORPUSCULAR HGB CONC 34.4 g/dl (32.0-37.0); MEAN CORPUSCULAR VOLUME 91.5 fl (82.0-101.0); MEAN PLATELET VOLUME 9.2 fl (7.4-10.4); MONOCYTE # 0.1 10^3/ul (0.3-0.9); MONOCYTES % 1.9 % (0.0-11.0); NEUTROPHIL # 6.5 10^3/ul (1.6-7.5); NEUTROPHILS % 94.3 % (39.0-77.0); PLATELET COUNT 125 10^3/UL (140-440); RED BLOOD COUNT 4.87 10^6/ul (4.70-6.10); RED CELL DISTRIBUTION WIDTH 13.4 % (11.5-14.5); UNCORRECTED WBC 6.9 10^3/ul (4.8-10.8); WHITE BLOOD COUNT 6.9 10^3/ul (4.8-10.8)
[2016-06-01 06:31] LABS: POTASSIUM 3.8 mmol/L (3.5-5.1)
[2016-06-01 06:34] LABS: CREATININE 0.7 mg/dl (0.61-1.24)
[2016-06-01 06:35] LABS: CALCIUM 8.5 mg/dl (8.4-10.2); CONDITION 1; LH ANALYZER COMMENTS 1
[2016-06-01 08:18] VITALS: BP 132/80; RESP 18
[2016-06-01] MEDS: ENOXAPARIN 40 MG/0.4 ML SYG SC SCH (09:03)
[2016-06-01] MEDS: FAMOTIDINE 20 MG INJ IV SCH (09:03)
[2016-06-01] MEDS ORDERED: ALBU8.5H3 INH (11:58)
[2016-06-01] MEDS ORDERED: SYMB80120 INHALATION (11:58)
[2016-06-01] MEDS ORDERED: MED4DP PO (11:58)
--- NOTE | 2016-06-01 12:01 | PDOCDIS ---
Discharge Instructions DIAGNOSIS Discharge Diagnosis: Asthma Exac CONDITION Patient Condition: Stable HOME CARE INSTRUCTIONS: Special Diet: regular diet ACTIVITY: Activity Restrictions: Rest between Activity Avoid heavy lifting No Sexual Activity FOLLOW UP/APPOINTMENTS Appointments follow up with primary care physician in one week. OTHER ORDERS: Other Orders: Asthma Exac - continue with medrol dose moshe, as needed albuterol, symbicort twice a day ARCADIO MANCILLA MD Jun 01, 2016 12:01
--- NOTE | 2016-06-01 13:50 | DS ---
DATE OF ADMISSION: 05/28/2016 DATE OF DISCHARGE: 06/01/2016 DISCHARGE DIAGNOSES: 1. Acute asthma exacerbation, resolved. 2. Acute hypoxemic respiratory failure, status post intubation. Extubated. 3. Sepsis secondary to atypical pneumonia, resolved. HOSPITAL COURSE: This is a pleasant 40-year-old male came in with a questionable asthma who present ed with acute shortness of breath, had emergent intubation, went to the ICU. Pulmonology was consul maryann. Patient was started on IV antibiotics, which were discontinued. IV steroids which were conver maryann to p.o. and monitored for any acute changes. Subsequently, the patient was able to tolerate ext ubation within a few days. He had a soft tissue neck CT done that showed: 1. No evidence of peritonsillar or retropharyngeal abscess. 2. No significant lymphadenopathy. 3. Endotracheal tube tip above the le. 4. Degenerative changes of the cervical spine, greatest at C5-C6. 5. Diffuse perinasal sinus mucosal thickening. 6. Had a chest x-ray done showin. No active intrathoracic disease. A repeat chest x-ray done showing no active intrathoracic dise ase. Chest x-ray done on 05/29/2016 showing no significant interval change, no definitive acute dis ease. Initial laboratory findings showed a white count of 15.3, currently 6.9, H and H has been stable. P latelets have been stable. Lactic acid was 1.05, ____ and 1.5. Sodium currently at admission was 1 45, anion gap of 20. Magnesium 2.7. Troponin x2 were negative. Currently, sodium is 141. Coags w ere within normal limits. Blood gas ABG showed a pH of 7.312, pCO2 of 46.8, pO2 of 532.6, bicarbona te ____, O2 sats of 99.7, base excess of ____. Last ABG done on 05/30/16 has shown a pH of 7.414, p CO2 of 31.1, pO2 of 102.7 and bicarbonate of 19.4 with a basic O2 sats 97.8 with base excess of -3.9 . Microbiology: MRSA, blood cultures and urine cultures were all negative. Subsequently, the roya ent was doing well today. No other acute complaints. I had talked to him about the care plan and h e understand he needs to follow up with the primary care physician and will need outpatient PFTs as well ____findings. DISPOSITION: Home. CONDITION: Stable. DISCHARGE MEDICATIONS: Include: 1. ProAir 2 puffs inhaled q.4 p.r.n. for shortness of breath. 2. Symbicort 2 puffs inhaled b.i.d. 3. Medrol Dosepak for the next 5 days. FOLLOWUP: The patient will follow up with his primary care physician in 1 week. Will follow with p ulmonology in 2 weeks. Patient's consultants were aware of this and agree with the plan. COORDINATION OF DISCHARGE: Greater than 40 minutes. Dictated By: ARCADIO CEE/JAVIER Conf#: [id number] DID#: [id number]
--- NOTE | 2016-06-01 15:18 | CONS ---
Date/Time of Note Date/Time of Note DATE: 06/01/16 TIME: 15:17 Consult Date/Type/Reason Admit Date/Time May 28, 2016 at 16:41 Type of Consultation: Pulmonary/critical care Subjective No events. Doing well. Objective Vital Signs Date Time Temp Pulse Resp B/P Pulse Ox O2 Delivery O2 Flow Rate FiO2 06/01/16 08:18 98.0 72 18 132/80 92 06/01/16 02:58 21 05/30/16 18:15 Room Air 05/30/16 14:30 2.0 Intake and Output .pe 05/31/16 05/31/16 06/01/16 15:00 23:00 07:00 Intake Total 500 ml 120 ml 350 ml Output Total 450 ml 400 ml 700 ml Balance 50 ml -280 ml -350 ml HEENT: Neck supple; no JVD; no LAD CVS: RRR, S1 and S2 CHEST: Clear ABD: Soft, NT, + BS EXT: No c/c/e Results/Medications Result Diagram: 06/01/1652406/01/16 0525 Results 24 hrs Laboratory Tests Test 06/01/16 05:25 Anion Gap 16 Basophils # 0.0 Basophils % 0.1 Blood Urea Nitrogen 24 H Calcium Level 8.5 Carbon Dioxide Level 26 Chloride Level 103 Creatinine 0.70 Eosinophils # 0.0 Eosinophils % 0.0 Glucose Level 148 Hematocrit 44.6 Hemoglobin 15.3 Lymphocytes # 0.3 L Lymphocytes % 3.7 L Mean Corpuscular Hemoglobin 31.4 Mean Corpuscular Hemoglobin Concent 34.4 Mean Corpuscular Volume 91.5 Mean Platelet Volume 9.2 Monocytes # 0.1 L Monocytes % 1.9 Neutrophils # 6.5 Neutrophils % 94.3 H Nucleated Red Blood Cells # 0.0 Nucleated Red Blood Cells % 0.0 Platelet Count 125 L Potassium Level 3.8 Red Blood Count 4.87 Red Cell Distribution Width 13.4 Sodium Level 141 White Blood Count 6.9 # Medications Current Medications Flumazenil (Romazicon) 0.2 mg Q1M PRN IV BENZODIAZEPINE OVERDOSE; Start at 17:00 Ondansetron HCl (Zofran Inj) 4 mg Q6H PRN IV NAUSEA AND/OR VOMITING; Start 05/28 at 17:00 Nitroglycerin (Nitroglycerin (Sl Tab) 0.4 Mg) 1 tab Q5M PRN SL CHEST PAIN; Start 05/28/16 at 17:00 Acetaminophen (Tylenol Supp) 650 mg Q4H PRN [place] PAIN LEVEL 1-3 OR FEVER; Start 05/28/16 at 17:00 Morphine Sulfate (morphine) 2 mg Q4H PRN IV PAIN LEVEL 7-10; Start 05/28/16 at 17:00 Lorazepam (Ativan) 1 mg Q2H PRN IV ANXIETY Last administered on 05/29/16 01:07 ; Admin Dose 1 MG; Start 05/28/16 at 17:00 Famotidine (Pepcid Iv) 20 mg Q12 IV Last administered on 06/01/16 09:03; Admin Dose 20 MG; Start 05/28/16 at 21:00 Enoxaparin Sodium (Lovenox) 40 mg DAILY SC Last administered on 06/01/16 09:03 ; Admin Dose 40 MG; Start 05/29/16 at 09:00 Methylprednisolone Sodium Succinate (Solu-Medrol) 125 mg Q6 IV Last administered on 06/01/16 12:14; Admin Dose 125 MG; Start 05/29/16 at 08:00 Assessment/Plan Additional Assessment/Plan IMP: 1. s/p Acute Resp Failure 2. Asthma Exacerbation RECS: 1. CS taper 2. LABA/ICS 3. Obtain IgE level 4. Outpatient PFT and Pulm f/u 5. D/C home MARQUISE ESCOBAR MD Jun 01, 2016 15:18
== END 2016-06-01 15:22 | disposition home or self-care (01) | DRG 871 ==
LOC: E/R 13:37 → ICU 16:41 → UNDOADMIN 21:23 → ICU 21:23 → MS4 05-30 18:45 → PP2 05-31 14:33
PROVIDERS: ADMIT Student in an Organized Health Care Education/Training Program; ATTEND Student in an Organized Health Care Education/Training Program
PROC: 0BH17EZ Insertion of Endotracheal Airway into Trachea, Via Natural or Artificial Opening (ICD-10-PCS; principal; 2016-05-28)
PROC: 5A1945Z Respiratory Ventilation, 24-96 Consecutive Hours (ICD-10-PCS; 2016-05-28)
DX: A41.9 Sepsis, unspecified organism (principal); J96.01 Acute respiratory failure with hypoxia; J18.9 Pneumonia, unspecified organism; J45.901 Unspecified asthma with (acute) exacerbation; F17.200 Nicotine dependence, unspecified, uncomplicated
CPT/HCPCS: 31500; 36415; 36600; 70491; 71010; 80048; 80198; 80307; 81001; 81003; 82550; 82553; 82803; 83605; 83735; 84484; 85025; 85378; 85610; 85730; 87040; 87081; 87086; 93005; 93306; 94002; 94003; 94640; 94660; 94664; 94770; 96374; 96375; J0330; J0456; J0692; J0696; J1100; J1650; J2060; J2250; J2930; J3010; J3475; J7030; Q9967